=== PATIENT | male | born 1975 | race Caucasian/White ===

== ENCOUNTER 2019-10-24 19:43 | Emergency (ER) | payer MEDICAID ==
[2019-10-24 20:02] VITALS: RESP 18; TEMP 98.3
[2019-10-24] MEDS ORDERED: LIDOCAINE 1% INJ 10MG/ML (20 ML MDV) SQ ONE (20:03)
[2019-10-24] MEDS ORDERED: TOPICAL SKIN ADHESIVE 1 EACH AMP TOPICAL ONE (20:12)
[2019-10-24] MEDS ORDERED: DIPH,PERTUS(ACELL)TETVAC-LF 0.5 ML VIAL IM ONE (20:12)
--- NOTE | 2019-10-24 20:21 | ED ---
Wound/Laceration HPI - General Chief Complaint: Wound/Laceration Stated Complaint: Finger Injury Time Seen by Provider: 10/24/19 20:03 Source: patient, RN notes reviewed, old records reviewed Mode of arrival: ambulatory Limitations: no limitations - History of Present Illness Initial Comments: Patient is a pleasant 44-year-old male who presents the emergency department today for evaluation for a drill bit laceration over his left index finger. Patient reports that the drill was on and he punctured the interphalangeal joint of the index finger. He states that seemed to go deep. He states he does have full range of motion of the finger and did report initially some slight diminished sensation on the lateral portion of the finger but that has bonner bsequently returned. He was sent here and encouraged by his to have an updated tetanus vaccine. He reports he did put Dermabond on it prior to arrival. Patient states that he has no other injuries at this time. - Related Data Home Medications Medication Instructions Recorded Confirmed Cetirizine HCl [Zyrtec] 10 mg PO HS 03/31/14 04/02/14 Loratadine [Claritin] 10 mg PO DAILY 03/31/14 04/02/14 Allergies Allergy/AdvReac Type Severity Reaction Status Date / Time No Known Allergies Allergy Verified 10/24/19 20:02 Review of Systems ROS Statement: Those systems with pertinent positive or pertinent negative responses have been documented in the HPI. ROS Other: All systems not noted in ROS Statement are negative. Past Medical History Past Medical History: No Reported History History of Any Multi-Drug Resistant Organisms: None Reported Additional Past Surgical History / Comment(s): WISDOM TEETH Past Anesthesia/Blood Transfusion Reactions: Motion Sickness Past Psychological History: No Psychological Hx Reported Smoking Status: Never smoker Past Alcohol Use History: Occasional Past Drug Use History: None Reported General Exam - General Exam Comments Initial Comments: 44-year-old male. Alert and oriented 3. Patient appears in no significant distress. Limitations: no limitations General appearance: alert, in no apparent distress Head exam: Present: atraumatic, normocephalic, normal inspection Eye exam: Present: normal appearance, PERRL, EOMI. Absent: scleral icterus, conjunctival injection, periorbital swelling ENT exam: Present: normal exam Neck exam: Present: normal inspection. Absent: tenderness, meningismus, lymphadenopathy Respiratory exam: Present: normal lung sounds bilaterally. Absent: respiratory distress, wheezes, rales, rhonchi, stridor Cardiovascular Exam: Present: regular rate, normal rhythm, normal heart sounds. Absent: systolic murmur, diastolic murmur, rubs, gallop, clicks GI/Abdominal exam: Present: soft, normal bowel sounds. Absent: distended, tenderness, guarding, rebound, rigid Extremities exam: Present: normal inspection, full ROM, normal capillary refill. Absent: tenderness, pedal edema, joint swelling, calf tenderness Left Elbow exam: Present: normal inspection, full ROM Forearm Wrist exam: Present: normal inspection, full ROM Hand Wrist exam: Present: full ROM, laceration (Patient has a puncture wound laceration over the proximal interphalangeal joint of the left index finger on the dorsal aspect of the finger. Patient has full range of motion and normal sensation and capillary refill is less than 2 seconds.). Absent: normal inspection Back exam: Present: normal inspection Neurological exam: Present: alert, oriented X3, CN II-XII intact Psychiatric exam: Present: normal affect, normal mood Skin exam: Present: warm, dry, intact, normal color. Absent: rash Course Vital Signs 10/24/19 20:00 Temperature 98.3 F Pulse Rate 70 Respiratory 18 Rate Blood Pressure 126/72 O2 Sat by Pulse 99 Oximetry Medical Decision Making - Medical Decision Making 44 -year-old male presents emergency department today for evaluation for concern for puncture laceration over the left index finger. The laceration is small like a puncture wound and Patient has full range of motion of the finger. He did put Dermabond over this before coming here. X-ray of the hand is negative for any acute process. He was given an updated tetanus shot. Laceration was cleansed and Dermabond was applied over this. Discussed monitoring for any signs of infection including redness swelling or drainage. - Radiology Data Radiology results: report reviewed Normal index finger. No evidence of fracture. Disposition Clinical Impression: Puncture wound of finger Disposition: HOME SELF-CARE Condition: Good Instructions (If sedation given, give patient instructions): Finger Laceration (ED) Additional Instructions: Please use medication as discussed.Monitor for any signs of infection. Please follow up with family doctor if symptoms have not improved over the next two days. Please return to the emergency room if your symptoms increase or worsen or for any other concerns. Is patient prescribed a controlled substance at d/c from ED?: No Referrals: Blanco Leon MD [Primary Care Provider] - 1-2 days Time of Disposition: 20:45
--- NOTE | 2019-10-24 20:43 | XR ---
EXAMINATION TYPE: XR finger LT DATE OF EXAM: 10/24/2019 COMPARISON: NONE HISTORY: Trauma. Pain. TECHNIQUE: 3 views FINDINGS: I see no fracture nor dislocation. Joint spaces are normal. There is no sign of radiopaque foreign body. IMPRESSION: Negative left index finger exam.
[2019-10-24] MEDS ORDERED: CEPHALEXIN 500MG STARTER PACK 4 CAP BTL PO STA (20:54)
[2019-10-24 20:59] VITALS: BP 115/71; PULSE 62
== END 2019-10-24 21:01 | disposition home or self-care (01) ==
LOC: EC 19:43
DX: S61.231A Puncture wound without foreign body of left index finger without damage to nail, initial encounter (principal); Z23 Encounter for immunization; W29.8XXA Contact with other powered hand tools and household machinery, initial encounter
CPT/HCPCS: 90471; 90715; 99284